=== PATIENT | female | born 1990 | race Two or more races ===

== ENCOUNTER 2019-09-05 12:17 | Emergency (ER) | payer OTHER ==
[~2019-09-05] VITALS: Ht 154.9 cm; Wt 59.0 kg
[2019-09-05 12:38] VITALS: BP 117/72
[2019-09-05] MEDS ORDERED: ACETAMINOPHEN 500 MG TAB PO ONE (12:45)
== END 2019-09-05 13:39 | disposition home or self-care (01) ==
LOC: ER 12:17
DX: S63.641A Sprain of metacarpophalangeal joint of right thumb, initial encounter (principal); S29.012A Strain of muscle and tendon of back wall of thorax, initial encounter; S50.12XA Contusion of left forearm, initial encounter; V43.52XA Car driver injured in collision with other type car in traffic accident, initial encounter; Y93.89 Activity, other specified; Y92.488 Other paved roadways as the place of occurrence of the external cause; Y99.8 Other external cause status
CPT/HCPCS: 29125; 29130; 72070; 73130